=== PATIENT | male | born 1950 | race Caucasian/White ===

== ENCOUNTER 2019-11-11 10:26 | Emergency (ER) | payer MEDICARE, BC ==
[~2019-11-11] VITALS: Ht 175.3 cm; Wt 67.6 kg
[2019-11-11] MEDS ORDERED: LEVO-T25 MCG PO (10:40)
[2019-11-11] MEDS ORDERED: TYLENOL EXTRA500 MG PO (10:40)
[2019-11-11] MEDS ORDERED: NORVASC 2.5 MG2.5 M1 PO (10:40)
[2019-11-11] MEDS ORDERED: ASA81BEC PO (10:40)
[2019-11-11] MEDS ORDERED: FIBER0.4 GM PO (10:42)
[2019-11-11] MEDS ORDERED: VITAMIN D325 MC3 PO (10:42)
[2019-11-11] MEDS ORDERED: VITAMIN C500 M2 PO (10:42)
[2019-11-11] MEDS ORDERED: MELATONIN3 M1 PO (10:42)
[2019-11-11] MEDS ORDERED: NEXIUM20 MG PO (10:43)
[2019-11-11] MEDS ORDERED: FISH OIL 1,0001 EAC9 PO (10:43)
[2019-11-11] MEDS ORDERED: DICYCLOMINE HCL20 MG PO (10:43)
[2019-11-11] MEDS ORDERED: LIPITOR40 MG PO (10:43)
[2019-11-11] MEDS ORDERED: MEDROL DOSPAK21 TA1 PO (11:05)
[2019-11-11 11:14] VITALS: BP 140/69
== END 2019-11-11 11:14 | disposition left against medical advice (07) ==
LOC: M.ERS 10:26
DX: J02.9 Acute pharyngitis, unspecified (principal); I10 Essential (primary) hypertension; E78.00 Pure hypercholesterolemia, unspecified; E03.9 Hypothyroidism, unspecified